=== PATIENT | male | born 1955 | race Caucasian/White ===

== ENCOUNTER 2018-11-21 08:18 | Day surgery (SDC) | payer BC ==
[~2018-11-21 08:18] MED LIST: Buffered Lidocaine 1% SYRIN* 1 ML/SYRINGE INTRADERM ONE
[2018-11-21] MEDS ORDERED: Midazolam* 1 MG/ML 2 ML VIAL (2 MG) ONE ×2 (10:15→10:23)
[2018-11-21 10:54] VITALS: BP 130/61
--- NOTE | 2018-11-21 12:09 | OP ---
OPERATIVE NOTE: DATE OF OPERATION: 11/21/18 DATE OF : 51 SURGEON: Kayden Santiago M.D. PREOPERATIVE DIAGNOSIS: Cataract, right eye. POSTOPERATIVE DIAGNOSIS: Cataract, right eye. OPERATIVE PROCEDURE: Extracapsular cataract extraction with intraocular lens implant right eye. PROCEDURE: The patient was brought to the operating room after being given 1/2% Alcaine with epineph rine drops in the preoperative area. The eye was prepped and draped in the usual sterile fashion. S terile drape and eyelid speculum were placed. Again, topical 1/2% Alcaine with epinephrine was given . A paracentesis incision was made at the 9 o'clock position with the No. 75 blade. Clear cornea in cision 2.2 x 2.2-mm was created at the 12 o'clock position starting at the anterior limbus using the 2.2-mm keratome. The anterior chamber was irrigated with 0.4 mL of 1% non-preservative intracameral lidocaine and filled with DisCoVisc. A capsulorrhexis was completed using the cystotome and the Utra ta forceps. Hydrodissection was performed with balanced salt solution. The lens nucleus was removed with the Phacoemulsification handpiece without incident. Cortex was removed with the irrigation-aspi ration handpiece. The capsular bag was re-inflated using DisCoVisc and an SN60WF 16.5 implant was in serted with the shooter. The irrigation-aspiration handpiece was used to remove all residual DisCoVi sc. The eye was refilled with balanced salt solution and the wound checked and found to be watertigh t. Topical Maxitrol drops were given. [id number]/[facility] #: [id number]
[2018-11-21] MEDS ORDERED: Ketorolac 0.5% OPHTH (NF) 0.5 % 5 ML BTL ONE (12:16)
[2018-11-21] MEDS ORDERED: Proparacaine 0.5% OPHTH.SOL* 15 ML BTL ONE (12:16)
[2018-11-21] MEDS ORDERED: Lidocaine 2% EPI 1:200000 MPF*10-20 ML VIAL ONE (12:16)
[2018-11-21] MEDS ORDERED: Povidone Iodine 5% OPTH* 30 ML BTL ONE (12:16)
[2018-11-21] MEDS ORDERED: Lidocaine 1%* 5 ML VIAL ONE (12:16)
[2018-11-21] MEDS ORDERED: Phenylephrine 2.5% OPTH.SOL* 2 ML BTL ONE (12:16)
[2018-11-21] MEDS ORDERED: Neomycin/Polymy/Dex OPTH.SUSP* MAXITROL 0.1% 5 ML ONE (12:16)
[2018-11-21] MEDS ORDERED: Cyclopentolate 1% OPTH.SOL* 2 ML BTL ONE (12:16)
[2018-11-21] MEDS ORDERED: acetaZOLAMIDE TAB* 250 MG ONE (12:16)
== END 2018-11-21 10:50 | disposition home or self-care (01) ==
LOC: OREAST 08:18
PROVIDERS: ATTEND Specialist
DX: H25.11 Age-related nuclear cataract, right eye (principal); D23.121 Other benign neoplasm of skin of left upper eyelid, including canthus; H40.023 Open angle with borderline findings, high risk, bilateral; H35.411 Lattice degeneration of retina, right eye; Z72.0 Tobacco use; Z88.0 Allergy status to penicillin; J44.9 Chronic obstructive pulmonary disease, unspecified; M19.90 Unspecified osteoarthritis, unspecified site
CPT/HCPCS: A9270-GY; J2250; V2632